=== PATIENT | female | born 1960 | race Caucasian/White ===

== ENCOUNTER 2020-06-30 14:13 | Inpatient (IN) | payer OTHER ==
[~2020-06-30] VITALS: Ht 162.6 cm; Wt 59.0 kg
[2020-06-30] VITALS (7 sets, daily range): BP systolic 83–153; BP diastolic 61–104
--- NOTE | 2020-06-30 15:33 | Emergency Room Report ---
History of Present Illness General Chief Complaint: Altered Level of Consciousness Source: Medical Record, EMS Present Illness HPI Patient is a 59-year-old female brought in by EMS from her extended care facility for altered mental status. Unclear what patient's mental baseline is b ut the assisted staff states that she is more altered than usual. Unable to obtain further history at this time. 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 Patient History Reviewed Nursing Documentation: PMH: Agreed; PSxH: Agreed Review of Systems All Other Systems: limited - Nonverbal Physical Exam Vital Signs Date Time Temp Pulse Resp B/P (MAP) Pulse Ox O2 Delivery O2 Flow Rate FiO2 06/30/20 13:59 98.1 122 22 123/104 (110) 98 4.0 Sp02 EP Interpretation: abnormal General Appearance: no apparent distress, other - Chronically ill-appearing moving all extremities nonverbal Head: normocephalic, atraumatic ENT: moist mucus membranes Neck: full range of motion, supple, no meningismus Respiratory: rhonchi, other - Tachypneic Cardiovascular #1: tachycardia Gastrointestinal: normal bowel sounds, non tender, soft Musculoskeletal: other - Moving all extremities status post amputation of right foot 3 digits Neurologic: other - Unable to obtain proper neurologic exam Psychiatric: other - Nonverbal unable to assess Skin: no rash Lymphatic: no adenopathy Procedures Critical Care Time Critical Care Time Total critical care time: Approximately 35 minutes. Due to a high probability of clinically significant, life threatening deterioration, the patient required my highest level of preparedness to intervene emergently and I personally spent this critical care time directly and personally managing the patient. This critical care time included obtaining a history; examining the patient; pulse oximetry; ordering and review of studies; arranging urgent treatment with development of a management plan; evaluation of patient's response to treatment; frequent reassessment; and, discussions with other providers.This critical care time was performed to assess and manage the high probability of imminent, life- threatening deterioration that could result in multi-organ failure. It was exclusive of separately billable procedures and treating other patients and teaching time. Please see MDM section and the rest of the note for further information on patient assessment and treatment. Medical Decision Making Diagnostic Impression: Primary Impression: COVID-19 Additional Impressions: AMS (altered mental status) Pneumonia UTI (urinary tract infection) Respiratory failure Hyperglycemia Acute renal failure ER Course Patient presents for altered mental status. Unknown patient is extremities. CT brain demonstrates no acute intracranial pathology. Patient is COVID-19 positive and has bilateral pulmonary infiltrates on her chest x-ray. Patient started on vancomycin and cefepime as she is coming from an extended care facility. Patient also given IV Decadron as well as breathing treatments. Patient became increasingly tachypneic while in the emergency room and has been placed on BiPAP. Patient also has UTI which will be covered by the previous antibiotics. Patient is hyperglycemic with glucose greater than 800 normal anion gap. Patient has been given insulin. Patient given IV fluids. Patient presents with acute renal insufficiency creatinine of 4. Patient has no known history of dialysis. Patient is hyponatremic and hyperkalemic. Laboratory Tests Test 06/30/20 15:50 06/30/20 16:50 06/30/20 17:34 White Blood Count 14.0 K/UL (4.8-10.8) H Red Blood Count 4.40 M/UL (4.20-5.40) Hemoglobin 13.5 G/DL (12.0-16.0) Hematocrit 42.2 % (37.0-47.0) Mean Corpuscular Volume 96 FL (80-99) Mean Corpuscular Hemoglobin 30.7 PG (27.0-31.0) Mean Corpuscular Hemoglobin Concent 32.0 G/DL (32.0-36.0) Red Cell Distribution Width 15.1 % (11.6-14.8) H Platelet Count 172 K/UL (150-450) Mean Platelet Volume 7.7 FL (6.5-10.1) Neutrophils (%) (Auto) 86.9 % (45.0-75.0) H Lymphocytes (%) (Auto) 10.4 % (20.0-45.0) L Monocytes (%) (Auto) 2.4 % (1.0-10.0) Eosinophils (%) (Auto) 0.0 % (0.0-3.0) Basophils (%) (Auto) 0.3 % (0.0-2.0) Prothrombin Time 11.5 SEC (9.30-11.50) Prothrombin Time INR 1.0 (0.9-1.1) Activated Partial Thromboplast Time 26 SEC (23-33) D-Dimer 3.03 mg/L FEU (0.00-0.49) H Sodium Level 154 MMOL/L (136-145) H Potassium Level 5.9 MMOL/L (3.5-5.1) H Chloride Level 117 MMOL/L (98-107) H Carbon Dioxide Level 22 MMOL/L (21-32) Anion Gap 15 mmol/L (5-15) Blood Urea Nitrogen 121 mg/dL (7-18) H Creatinine 4.2 MG/DL (0.55-1.30) H Estimated Glomerular Filtration Rate 10.8 mL/min (>60) Glucose Level 867 MG/DL (74-106) *H Lactic Acid Level 5.60 mmol/L (0.4-2.0) H Calcium Level 8.8 MG/DL (8.5-10.1) Magnesium Level 3.6 MG/DL (1.8-2.4) H Ferritin 513 NG/ML (8-388) H Total Bilirubin 0.3 MG/DL (0.2-1.0) Aspartate Amino Transferase (AST) 13 U/L (15-37) L Alanine Aminotransferase (ALT) < 6 U/L (12-78) L Alkaline Phosphatase 100 U/L (46-116) Lactate Dehydrogenase 431 U/L (81-234) H Troponin I 0.014 ng/mL (0.000-0.056) C-Reactive Protein, Quantitative 26.7 mg/dL (0.00-0.90) H Pro-B-Type Natriuretic Peptide 4032 pg/mL (0-125) H Total Protein 9.9 G/DL (6.4-8.2) H Albumin 2.5 G/DL (3.4-5.0) L Globulin 7.4 g/dL Albumin/Globulin Ratio 0.3 (1.0-2.7) L Urine Color Yellow Urine Appearance Cloudy Urine pH 5 (4.5-8.0) Urine Specific [place] 1.020 (1.005-1.035) Urine Protein 3+ (NEGATIVE) H Urine Glucose (UA) 2+ (NEGATIVE) H Urine Ketones 1+ (NEGATIVE) H Urine Blood 5+ (NEGATIVE) H Urine Nitrite Negative (NEGATIVE) Urine Bilirubin 1+ (NEGATIVE) H Urine Ictotest Negative (NEGATIVE) Urine Urobilinogen 1 MG/DL (0.0-1.0) H Urine Leukocyte Esterase 3+ (NEGATIVE) H Urine RBC 20-30 /HPF (0 - 2) H Urine WBC Tntc /HPF (0 - 2) H Urine Squamous Epithelial Cells Many /LPF (NONE/OCC) H Urine Bacteria Many /HPF (NONE) H Arterial Blood pH 7.268 (7.350-7.450) Arterial Blood Partial Pressure CO2 42.8 mmHg (35.0-45.0) Arterial Blood Partial Pressure O2 78.6 mmHg (75.0-100.0) Arterial Blood HCO3 19.1 mmol/L (22.0-26.0) L Arterial Blood Oxygen Saturation 92.6 % (95-100) L Arterial Blood Base Excess -7.5 (-2-2) L Pavan Test Positive Microbiology Date/Time Source Procedure Growth Status 06/30/20 14:36 Nasopharynx SARS-CoV-2 RdRp Gene Assay - Final Complete Rhythm Strip Diag. Results Rhythm Strip Time: 15:35 EP Interpretation: yes - Shayla Lema MD Rate: 130 bpm Rhythm: no PVC's, no ectopy, other - sinus tachycardia Chest X-Ray Diagnostic Results Chest X-Ray Diagnostic Results : Chest X-Ray Ordered: Yes # of Views/Limited/Complete: 1 View EP Interpretation: Yes Interpretation: no effusion, no pneumothorax, other - Bilateral pulmonary infiltrates Impression: Other - Pneumonia Electronically Signed by: Shayla Lema MD Last Vital Signs Date Time Temp Pulse Resp B/P (MAP) Pulse Ox O2 Delivery O2 Flow Rate FiO2 06/30/20 13:59 98.1 122 22 123/104 (110) 98 4.0 Disposition: ADMITTED INPATIENT - SDU Condition: Critical Physician Consult: Dr. Poppy MD at 1810 Additional Instructions: Please note that this report is being documented using Betyah technology. This can lead to erroneous entry secondary to incorrect interpretation by the dictating instrument. Sepsis Event Note Evaluation Current Stage of Sepsis: Severe Sepsis Possible Source: Pulmonary Focused Exam Allergies: Coded Allergies: No Known Allergies (Unverified , 06/30/20) Date Exam Occurred: Jun 30, 2020 Time Exam Occurred: 18:13 Laboratory Studies Laboratory Tests Test 06/30/20 15:50 06/30/20 16:50 06/30/20 17:34 White Blood Count 14.0 K/UL (4.8-10.8) H Red Blood Count 4.40 M/UL (4.20-5.40) Hemoglobin 13.5 G/DL (12.0-16.0) Hematocrit 42.2 % (37.0-47.0) Mean Corpuscular Volume 96 FL (80-99) Mean Corpuscular Hemoglobin 30.7 PG (27.0-31.0) Mean Corpuscular Hemoglobin Concent 32.0 G/DL (32.0-36.0) Red Cell Distribution Width 15.1 % (11.6-14.8) H Platelet Count 172 K/UL (150-450) Mean Platelet Volume 7.7 FL (6.5-10.1) Neutrophils (%) (Auto) 86.9 % (45.0-75.0) H Lymphocytes (%) (Auto) 10.4 % (20.0-45.0) L Monocytes (%) (Auto) 2.4 % (1.0-10.0) Eosinophils (%) (Auto) 0.0 % (0.0-3.0) Basophils (%) (Auto) 0.3 % (0.0-2.0) Prothrombin Time 11.5 SEC (9.30-11.50) Prothromb Time International Ratio 1.0 (0.9-1.1) Activated Partial Thromboplast Time 26 SEC (23-33) D-Dimer 3.03 mg/L FEU (0.00-0.49) H Sodium Level 154 MMOL/L (136-145) H Potassium Level 5.9 MMOL/L (3.5-5.1) H Chloride Level 117 MMOL/L (98-107) H Carbon Dioxide Level 22 MMOL/L (21-32) Anion Gap 15 mmol/L (5-15) Blood Urea Nitrogen 121 mg/dL (7-18) H Creatinine 4.2 MG/DL (0.55-1.30) H Estimat Glomerular Filtration Rate 10.8 mL/min (>60) Glucose Level 867 MG/DL (74-106) *H Lactic Acid Level 5.60 mmol/L (0.4-2.0) H Calcium Level 8.8 MG/DL (8.5-10.1) Magnesium Level 3.6 MG/DL (1.8-2.4) H Ferritin 513 NG/ML (8-388) H Total Bilirubin 0.3 MG/DL (0.2-1.0) Aspartate Amino Transf (AST/SGOT) 13 U/L (15-37) L Alanine Aminotransferase (ALT/SGPT) < 6 U/L (12-78) L Alkaline Phosphatase 100 U/L (46-116) Lactate Dehydrogenase 431 U/L (81-234) H Troponin I 0.014 ng/mL (0.000-0.056) C-Reactive Protein, Quantitative 26.7 mg/dL (0.00-0.90) H Pro-B-Type Natriuretic Peptide 4032 pg/mL (0-125) H Total Protein 9.9 G/DL (6.4-8.2) H Albumin 2.5 G/DL (3.4-5.0) L Globulin 7.4 g/dL Albumin/Globulin Ratio 0.3 (1.0-2.7) L Urine Color Yellow Urine Appearance Cloudy Urine pH 5 (4.5-8.0) Urine Specific [place] 1.020 (1.005-1.035) Urine Protein 3+ (NEGATIVE) H Urine Glucose (UA) 2+ (NEGATIVE) H Urine Ketones 1+ (NEGATIVE) H Urine Blood 5+ (NEGATIVE) H Urine Nitrite Negative (NEGATIVE) Urine Bilirubin 1+ (NEGATIVE) H Urine Ictotest Negative (NEGATIVE) Urine Urobilinogen 1 MG/DL (0.0-1.0) H Urine Leukocyte Esterase 3+ (NEGATIVE) H Urine RBC 20-30 /HPF (0 - 2) H Urine WBC Tntc /HPF (0 - 2) H Urine Squamous Epithelial Cells Many /LPF (NONE/OCC) H Urine Bacteria Many /HPF (NONE) H Arterial Blood pH 7.268 (7.350-7.450) Arterial Blood Partial Pressure CO2 42.8 mmHg (35.0-45.0) Arterial Blood Partial Pressure O2 78.6 mmHg (75.0-100.0) Arterial Blood HCO3 19.1 mmol/L (22.0-26.0) L Arterial Blood Oxygen Saturation 92.6 % (95-100) L Arterial Blood Base Excess -7.5 (-2-2) L Pavan Test Positive Vital Signs Last 24 Hour Vital Signs Date Time Temp Pulse Resp B/P (MAP) Pulse Ox O2 Delivery O2 Flow Rate FiO2 06/30/20 17:30 98.4 122 40 83/61 90 Non-Rebreather 15.0 06/30/20 15:40 98.2 112 33 109/74 98 Non-Rebreather 15.0 06/30/20 15:32 98.1 22 123/104 98 Non-Rebreather 15.0 06/30/20 15:32 122 22 Non-Rebreather 15.0 06/30/20 13:59 98.1 122 22 123/104 (110) 98 4.0 Respiratory Exam: Rhonchi Cardiovascular Exam: RRR Capillary Refill: Less Than 2 Seconds Peripheral Pulse: Shayla Rizo M.D. Jun 30, 2020 15:33
[2020-06-30] MEDS ORDERED: Cefepime HCl 2 GM in D5W 55 ML IVPB ONE (15:45)
[2020-06-30] MEDS ORDERED: Vancomycin 1 GM in NS 275 ML IVPB ONE (15:45)
[2020-06-30] MEDS ORDERED: Albuterol/Ipratropium 3ml neb HHN ONE ×2 (15:45→18:15)
[2020-06-30] MEDS ORDERED: dexAMETHasone 10mg/ml Inj IV ONE (15:45)
[2020-06-30] MEDS ORDERED: NESINA25 MG PO (16:36)
[2020-06-30] MEDS ORDERED: BENZTROPINE MESY1 MG ORAL (16:36)
[2020-06-30] MEDS ORDERED: COLACE100 MG ORAL (16:36)
[2020-06-30] MEDS ORDERED: DEPAKOTE ER500 MG ORAL (16:38)
[2020-06-30] MEDS ORDERED: Midazolam 2mg/2ml Inj IVP ONE (16:45)
[2020-06-30] MEDS ORDERED: GLIPIZIDE5 MG ORAL (16:47)
[2020-06-30] MEDS ORDERED: ACIDOPHILUS LACT1 GM MC (16:47)
[2020-06-30] MEDS ORDERED: MILK OF MA400 MG/51 ORAL (16:47)
[2020-06-30] MEDS ORDERED: DULCOLAX10 MG RC (16:47)
[2020-06-30] MEDS ORDERED: FLEET ENEMA133 ML RECTAL (16:47)
[2020-06-30] MEDS ORDERED: NOVOLIN R100 UNIT/1 SUBQ (16:47)
[2020-06-30] MEDS ORDERED: METFORMIN HCL500 M1 ORAL (16:47)
[2020-06-30] MEDS ORDERED: PROTONIX20 MG ORAL (16:48)
[2020-06-30] MEDS ORDERED: MIRALAX17 G2 ORAL (16:48)
[2020-06-30] MEDS ORDERED: SENNA LAXATIVE8.6 MG PO (16:54)
[2020-06-30] MEDS ORDERED: ACETAMINOPHEN325 M1 ORAL (16:54)
--- NOTE | 2020-06-30 17:06 | Diagnostic Imaging Report ---
Indication: Shortness of breath Technique: One view of the chest Comparison: none Findings: Infiltrate is seen in the right infrahilar region. There are also bilateral streaky and peribronchial vascular infiltrates. There is a right jugular central venous catheter. The heart size is normal. The pleural spaces are clear. Impression: Bilateral infiltrates, likely representing multifocal pneumonia
[2020-06-30 17:30] LABS: APPEARANCE,URINE CLOUDY; BILIRUBIN, URINE 1+ (NEGATIVE); GLUCOSE, URINE (UA) 2+ (NEGATIVE); KETONES,URINE 1+ (NEGATIVE); LEUKOCYTE ESTERASE ,URINE 3+ (NEGATIVE); NITRITE,URINE NEGATIVE (NEGATIVE); PH,URINE 5 (4.5-8.0); PROTEIN,URINE 3+ (NEGATIVE); UROBILINOGEN,URINE 1 MG/DL (0.0-1.0)
[2020-06-30 17:36] LABS: COLOR,URINE YELLOW
--- NOTE | 2020-06-30 17:48 | Diagnostic Imaging Report ---
History: AMS Exam: CT HEAD Without Contrast Technique more: CTDI is 53.4 mGy and DLP is 1072.2 mGy-cm. Technique more: One or more of the following dose reduction techniques were used: automated exposure control, adjustment of the mA and/or kV according to patient size, use of iterative reconstruction technique. Comparison: None available FINDINGS: No intracranial hemorrhage or CT evidence of large vascular territory acute infarct. Right frontal approach intraventricular shunt catheter with tip at the septum pellucidum. The lateral and third ventricles are mildly large in size although no prior studies for comparison at this time. No midline shift. Chronic and involutional changes. The mastoids are clear. IMPRESSION: No intracranial hemorrhage or CT evidence of large vascular territory acute infarct. Right frontal approach intraventricular shunt catheter with tip at the septum pellucidum. The lateral and third ventricles are mildly large in size although no prior studies for comparison at this time. No midline shift. Chronic and involutional changes.
[2020-06-30 17:49] LABS: ANION GAP 15 mmol/L (5-15); BLOOD UREA NITROGEN 121 mg/dL (7-18); CALCIUM 8.8 MG/DL (8.5-10.1); CARBON DIOXIDE 22 MMOL/L (21-32); CHLORIDE 117 MMOL/L (98-107); CREATININE 4.2 MG/DL (0.55-1.30); POTASSIUM 5.9 MMOL/L (3.5-5.1); SODIUM 154 MMOL/L (136-145)
[2020-06-30 17:59] LABS: HEMATOCRIT 42.2 % (37.0-47.0); HEMOGLOBIN 13.5 G/DL (12.0-16.0); MEAN CORPUSCULAR VOLUME 96 FL (80-99); PLATELET COUNT 172 K/UL (150-450); RED CELL DISTRIBUTION WIDTH 15.1 % (11.6-14.8)
[2020-06-30] MEDS ORDERED: Insulin Human Regular 100units/ml 3ml IV ONE (18:00)
[2020-06-30 18:01] LABS: ALANINE AMINOTRANSFERASE < 6 U/L (12-78); ALBUMIN 2.5 G/DL (3.4-5.0); ALBUMIN/GLOBULIN RATIO 0.3 (1.0-2.7); ALKALINE PHOSPHATASE 100 U/L (46-116); ASPARTATE AMINO TRANSFERASE 13 U/L (15-37); BASOPHILS % (AUTO) 0.3 % (0.0-2.0); BILIRUBIN,TOTAL 0.3 MG/DL (0.2-1.0); FERRITIN 513 NG/ML (8-388); LACTATE DEHYDROGENASE 431 U/L (81-234); LYMPHOCYTES % (AUTO) 10.4 % (20.0-45.0); MONOCYTES % (AUTO) 2.4 % (1.0-10.0); NEUTROPHILS % (AUTO) 86.9 % (45.0-75.0)
[2020-06-30] MEDS ORDERED: Heparin 25,000u/D5W 500ml 500 ML IV SCH (18:15)
[2020-06-30] MEDS ORDERED: Heparin 5000 units/ml inj IV ONE (18:15)
[2020-06-30] MEDS ORDERED: Insulin Human Regular 100units/ml 3ml IV SCH (18:15)
[2020-07-01] VITALS (11 sets, daily range): BP systolic 77–101; BP diastolic 45–72
[2020-07-01 00:48] LABS: INR 1.1 (0.9-1.1)
[2020-07-01 05:50] LABS: ALBUMIN/GLOBULIN RATIO 0.3 (1.0-2.7); BILIRUBIN,TOTAL 0.3 MG/DL (0.2-1.0); CALCIUM 7.5 MG/DL (8.5-10.1); CREATININE 4.5 MG/DL (0.55-1.30); PHOSPHORUS 3.1 MG/DL (2.5-4.9); POTASSIUM 5.3 MMOL/L (3.5-5.1)
--- NOTE | 2020-07-01 06:35 | Consultation ---
History of Present Illness General Chief Complaint: Altered Level of Consciousness Present Illness Allergies: Coded Allergies: No Known Allergies (Unverified , 06/30/20) Medication History Scheduled Alogliptin Benzoate (Nesina), 25 MG PO DAILY, (Reported) Benztropine Mesylate* (Benztropine Mesylate*), 1 MG ORAL BID, (Reported) Bisacodyl (Dulcolax), 10 MG RC PRN, (Reported) Divalproex Sodium* (Depakote Er*), 500 MG ORAL THREE TIMES A DAY, (Reported) Docusate Sodium* (Colace*), 100 MG ORAL DAILY, (Reported) Glipizide* (Glipizide*), 10 MG ORAL DAILY, (Reported) Insulin Regular, Human* (Novolin R*), 0 SUBQ .SLIDING SCALE, (Reported) Lactobacillus Acidophilus (Acidophilus Lactobacillus), 1 GM MC THREE TIMES A DAY, (Reported) Magnesium Hydroxide* (Milk Of Magnesia*), 30 ML ORAL DAILY, (Reported) Metformin Hcl* (Metformin Hcl*), 500 MG ORAL TWICE A DAY, (Reported) Na Phos,M-B/Na Phos,Di-Ba* (Fleet Enema*), 133 ML RECTAL DAILY, (Reported) Pantoprazole Sodium (Protonix), 20 MG ORAL DAILY, (Reported) Polyethylene Glycol 3350* (Miralax*), 17 GM ORAL DAILY, (Reported) Sennosides (Senna Laxative), 17.2 MG PO BEDTIME, (Reported) Scheduled PRN Acetaminophen* (Acetaminophen 325MG Tablet*), 650 MG ORAL Q4H PRN for pain/fever, (Reported) Patient History Healthcare decision maker Resuscitation status Advanced Directive on File Physical Exam Last 24 Hour Vital Signs Date Time Temp Pulse Resp B/P (MAP) Pulse Ox O2 Delivery O2 Flow Rate FiO2 07/01/20 05:00 98.3 132 46 99/64 99 Bi-pap 15.0 100 07/01/20 04:00 98.3 130 46 98/72 99 Bi-pap 15.0 100 07/01/20 03:00 98.3 128 45 101/61 99 Bi-pap 15.0 100 07/01/20 02:43 118 47 99 100 07/01/20 02:00 98.3 128 38 94/63 98 Bi-pap 15.0 100 07/01/20 01:00 98.3 124 38 96/67 98 Bi-pap 15.0 100 07/01/20 00:00 98.4 121 41 98/62 97 Bi-pap 15.0 100 06/30/20 23:00 98.4 123 46 101/68 96 Bi-pap 15.0 100 06/30/20 23:00 122 46 94 100 06/30/20 22:00 98.4 119 32 110/72 100 Bi-pap 15.0 100 06/30/20 20:30 98.4 115 34 108/78 100 Bi-pap 15.0 100 06/30/20 19:30 98.4 119 34 153/98 100 Bi-pap 15.0 100 06/30/20 19:29 92 57 95 100 06/30/20 19:08 124 57 97 Bi-Pap 100 115 50 95 06/30/20 18:05 92 24 96 100 06/30/20 17:30 98.4 122 40 83/61 90 Non-Rebreather 15.0 06/30/20 15:40 98.2 112 33 109/74 98 Non-Rebreather 15.0 06/30/20 15:32 98.1 22 123/104 98 Non-Rebreather 15.0 06/30/20 15:32 122 22 Non-Rebreather 15.0 06/30/20 13:59 98.1 122 22 123/104 (110) 98 4.0 l Intake and Output 06/30/20 07/01/20 19:00 07:00 Intake Total 330 ml Balance 330 ml Intake Oral 0 ml IV Total 330 ml Laboratory Tests Test 06/30/20 15:50 06/30/20 16:50 06/30/20 17:34 07/01/20 00:00 White Blood Count 14.0 K/UL (4.8-10.8) H Red Blood Count 4.40 M/UL (4.20-5.40) Hemoglobin 13.5 G/DL (12.0-16.0) Hematocrit 42.2 % (37.0-47.0) Mean Corpuscular Volume 96 FL (80-99) Mean Corpuscular Hemoglobin 30.7 PG (27.0-31.0) Mean Corpuscular Hemoglobin Concent 32.0 G/DL (32.0-36.0) Red Cell Distribution Width 15.1 % (11.6-14.8) H Platelet Count 172 K/UL (150-450) Mean Platelet Volume 7.7 FL (6.5-10.1) Neutrophils (%) (Auto) 86.9 % (45.0-75.0) H Lymphocytes (%) (Auto) 10.4 % (20.0-45.0) L Monocytes (%) (Auto) 2.4 % (1.0-10.0) Eosinophils (%) (Auto) 0.0 % (0.0-3.0) Basophils (%) (Auto) 0.3 % (0.0-2.0) Prothrombin Time 11.5 SEC (9.30-11.50) 12.2 SEC (9.30-11.50) H Prothromb Time International Ratio 1.0 (0.9-1.1) 1.1 (0.9-1.1) Activated Partial Thromboplast Time 26 SEC (23-33) 60 SEC (23-33) H D-Dimer 3.03 mg/L FEU (0.00-0.49) H Sodium Level 154 MMOL/L (136-145) H Potassium Level 5.9 MMOL/L (3.5-5.1) H Chloride Level 117 MMOL/L (98-107) H Carbon Dioxide Level 22 MMOL/L (21-32) Anion Gap 15 mmol/L (5-15) Blood Urea Nitrogen 121 mg/dL (7-18) H Creatinine 4.2 MG/DL (0.55-1.30) H Estimat Glomerular Filtration Rate 10.8 mL/min (>60) Glucose Level 867 MG/DL (74-106) *H Lactic Acid Level 5.60 mmol/L (0.4-2.0) H Calcium Level 8.8 MG/DL (8.5-10.1) Magnesium Level 3.6 MG/DL (1.8-2.4) H Ferritin 513 NG/ML (8-388) H Total Bilirubin 0.3 MG/DL (0.2-1.0) Aspartate Amino Transf (AST/SGOT) 13 U/L (15-37) L Alanine Aminotransferase (ALT/SGPT) < 6 U/L (12-78) L Alkaline Phosphatase 100 U/L (46-116) Lactate Dehydrogenase 431 U/L (81-234) H Troponin I 0.014 ng/mL (0.000-0.056) C-Reactive Protein, Quantitative 26.7 mg/dL (0.00-0.90) H Pro-B-Type Natriuretic Peptide 4032 pg/mL (0-125) H Total Protein 9.9 G/DL (6.4-8.2) H Albumin 2.5 G/DL (3.4-5.0) L Globulin 7.4 g/dL Albumin/Globulin Ratio 0.3 (1.0-2.7) L Urine Color Yellow Urine Appearance Cloudy Urine pH 5 (4.5-8.0) Urine Specific [place] 1.020 (1.005-1.035) Urine Protein 3+ (NEGATIVE) H Urine Glucose (UA) 2+ (NEGATIVE) H Urine Ketones 1+ (NEGATIVE) H Urine Blood 5+ (NEGATIVE) H Urine Nitrite Negative (NEGATIVE) Urine Bilirubin 1+ (NEGATIVE) H Urine Ictotest Negative (NEGATIVE) Urine Urobilinogen 1 MG/DL (0.0-1.0) H Urine Leukocyte Esterase 3+ (NEGATIVE) H Urine RBC 20-30 /HPF (0 - 2) H Urine WBC Tntc /HPF (0 - 2) H Urine Squamous Epithelial Cells Many /LPF (NONE/OCC) H Urine Bacteria Many /HPF (NONE) H Urine Random Sodium 124 mmol/L (20-110) H Arterial Blood pH 7.268 (7.350-7.450) Arterial Blood Partial Pressure CO2 42.8 mmHg (35.0-45.0) Arterial Blood Partial Pressure O2 78.6 mmHg (75.0-100.0) Arterial Blood HCO3 19.1 mmol/L (22.0-26.0) L Arterial Blood Oxygen Saturation 92.6 % (95-100) L Arterial Blood Base Excess -7.5 (-2-2) L Pavan Test Positive Test 07/01/20 04:45 White Blood Count Pending Red Blood Count Pending Hemoglobin Pending Hematocrit Pending Mean Corpuscular Volume Pending Mean Corpuscular Hemoglobin Pending Mean Corpuscular Hemoglobin Concent Pending Red Cell Distribution Width Pending Platelet Count Pending Mean Platelet Volume Pending Neutrophils (%) (Auto) Pending Lymphocytes (%) (Auto) Pending Monocytes (%) (Auto) Pending Eosinophils (%) (Auto) Pending Basophils (%) (Auto) Pending Sodium Level 159 MMOL/L (136-145) H Potassium Level 5.3 MMOL/L (3.5-5.1) H Chloride Level 128 MMOL/L (98-107) H Carbon Dioxide Level 18 MMOL/L (21-32) L Anion Gap 13 mmol/L (5-15) Blood Urea Nitrogen 126 mg/dL (7-18) H Creatinine 4.5 MG/DL (0.55-1.30) H Estimat Glomerular Filtration Rate 9.9 mL/min (>60) Glucose Level 398 MG/DL (74-106) #H Hemoglobin A1c Pending Lactic Acid Level 3.90 mmol/L (0.4-2.0) H Uric Acid 13.4 MG/DL (2.6-7.2) H Calcium Level 7.5 MG/DL (8.5-10.1) L Phosphorus Level 3.1 MG/DL (2.5-4.9) Magnesium Level 2.6 MG/DL (1.8-2.4) H Total Bilirubin 0.3 MG/DL (0.2-1.0) Aspartate Amino Transf (AST/SGOT) 20 U/L (15-37) Alanine Aminotransferase (ALT/SGPT) 7 U/L (12-78) L Alkaline Phosphatase 64 U/L (46-116) C-Reactive Protein, Quantitative Pending Pro-B-Type Natriuretic Peptide 4317 pg/mL (0-125) H Total Protein 7.8 G/DL (6.4-8.2) Albumin 2.0 G/DL (3.4-5.0) L Globulin 5.8 g/dL Albumin/Globulin Ratio 0.3 (1.0-2.7) L Microbiology Date/Time Source Procedure Growth Status 06/30/20 15:50 Nasal Nares - Final Complete 06/30/20 15:50 Nasal Nares - Final Complete 06/30/20 14:36 Nasopharynx SARS-CoV-2 RdRp Gene Assay - Final Complete Height (Feet): 5 Height (Inches): 4.00 Weight (Pounds): 130 Medications Current Medications Medications (Trade) Dose Ordered Sig/Alexander Route PRN Reason Start Time Stop Time Status Last Admin Dose Admin Acetaminophen (Tylenol) 650 mg Q4H PRN ORAL For Pain 06/30/20 18:45 07/30/20 18:44 Acetaminophen (Tylenol) 650 mg Q4H PRN ORAL Temp >100.5 06/30/20 20:45 07/30/20 20:44 Bisacodyl (Dulcolax) 10 mg DAILYPRN PRN RECTAL Constipation 06/30/20 18:45 09/28/20 18:44 Chlorhexidine Gluconate (Carolyn-Hex 2%) 1 applic DAILY TOPIC 07/01/20 09:00 09/29/20 08:59 Dextrose (Dextrose 50%) 25 ml Q30M PRN IV Hypoglycemia 07/01/20 06:30 09/29/20 06:29 Dextrose (Dextrose 50%) 50 ml Q30M PRN IV Hypoglycemia 07/01/20 06:30 09/29/20 06:29 Docusate Sodium (Colace) 100 mg DAILY ORAL 07/01/20 09:00 07/31/20 08:59 Heparin Sodium/ Dextrose 500 ml @ 14.152 mls/ hr ADJUST PER PROTOCOL IV 06/30/20 18:15 07/30/20 18:14 06/30/20 18:16 Insulin Aspart (NovoLOG) EVERY 4 HOURS SUBQ 07/01/20 09:00 09/29/20 08:59 Insulin Detemir (Levemir) 10 units BID SUBQ 07/01/20 09:00 09/29/20 08:59 Sodium Chloride 1,000 ml @ 75 mls/hr [id number] IV 06/30/20 20:30 07/30/20 20:29 06/30/20 20:33 Assessment/Plan Assessment/Plan: Hematology Consultation REQ MD: Vick Mead DOS: 07/01/20 RFC: Elevated ddimer ID 59-year-old female brought in by EMS from her extended care facility for altered mental status. Unclear what patient's mental baseline is but the correction staff states that she is more altered than usual. Unable to obtain further history at this time. Has been started on heparin gtt for high ddimer, hypoxia. Allergies: No Known Allergies (Unverified , 06/30/20) COVID-19 Screening Contact w/high risk pt: No Experienced COVID-19 symptoms?: No COVID-19 Testing performed OIL RIG ROUGHNECK: No Patient History Reviewed Nursing Documentation: PMH: Agreed; PSxH: Agreed Review of Systems All Other Systems: limited - Nonverbal PE Vitals: noted Gen: Chronically ill-appearing moving all extremities nonverbal Heent: full range of motion, supple, no meningismus Resp: rhonchi, other - Tachypneic Cardiovascular: tachycardia Gastrointestinal: normal bowel sounds, non tender, soft Musculoskeletal: other - Moving all extremities status post amputation of right foot 3 digits Neurologic: other - Unable to obtain proper neurologic exam Psychiatric: other - Nonverbal unable to assess Skin: no rash Lymphatic: no adenopathy Labs: reviewed Imaging: noted Assessmet and Recs # Elevated ddimer -- may be due to hypercoag disorder, at this time, presents with covid 19 --> id and pulm consulted, isolation precautions --> will order duplex legs as well as v/q if able to tolerate --> continue on heparin gtt, until results above neg # Leukocytosis is due to covid 19 --> trend wbc 14 --> p smear has been reviewed, no blasts --> Cxr shows b/l pulm infiltrates # COVID-19 -> steriods, abx --> iso precautions # AMS (altered mental status) --> eval per neuro # Pneumonia # UTI # Respiratory failure # Hyperglycemia # Acute renal failure # Hyperkalemia Appreciate consultation and dw Chance Ordaz MD Jul 01, 2020 06:34
[2020-07-01 06:42] LABS: HEMATOCRIT 34.6 % (37.0-47.0); HEMOGLOBIN 11.5 G/DL (12.0-16.0); MEAN CORPUSCULAR VOLUME 92 FL (80-99); PLATELET COUNT 121 K/UL (150-450); RED BLOOD COUNT 3.76 M/UL (4.20-5.40); RED CELL DISTRIBUTION WIDTH 15.1 % (11.6-14.8); WHITE BLOOD COUNT 11.1 K/UL (4.8-10.8)
[2020-07-01 07:47] LABS: INR 1.2 (0.9-1.1)
--- NOTE | 2020-07-01 08:00 | Consultation ---
DATE OF CONSULTATION: 07/01/2020 ENDOCRINOLOGY CONSULTATION CONSULTING PHYSICIAN: Sincere Galvan MD. REFERRING PHYSICIAN: Vick Love MD. REASON FOR CONSULTATION: Diabetes management. HISTORY OF PRESENT ILLNESS: This is important to note that history was obtained from review of the chart and medical records. The patient is not able to provide any meaningful history. The patient presented to the hospital with altered mental status, elevated glucose, COVID positive, glucose is over 400. There is no evidence of DKA. Lactic acid was positive. Endocrinology was consulted in order to assist in management of diabetes. PAST MEDICAL HISTORY: Diabetes, on oral agents glipizide, Nesina as well as metformin. PAST SURGICAL HISTORY: Unknown. MEDICATIONS: As per HPI. FAMILY HISTORY: Noncontributory. SOCIAL HISTORY: No smoking, alcohol, or drug use. LABORATORY VALUES: Sodium 159, potassium 5.3, chloride 128, bicarb 30, BUN 126, creatinine of 4.5, and glucose of 398. Lactic acid of 5.6. PHYSICAL EXAMINATION: VITAL SIGNS: Blood pressure is 99/64, heart rate of 133, temperature 98.3, respiratory rate 12. Exam was deferred due to COVID isolation. DIAGNOSES: 1. Acute kidney injury. 2. Lactic acidosis. 3. Diabetes, out of control. 4. COVID pneumonia. PLAN: 1. Levemir 10 units twice a day. 2. Start glucose monitoring every 4 hours. 3. NovoLog sliding scale high dose every 4 hours. 4. Hypoglycemia protocol is in order. 5. Further adjustment according to the blood glucose values. Thank you, Dr. Love, for the courtesy of this consultation. Sincere Galvan M.D. DR: TEDDY/RABIA JOB#: [id number] CC: CLAUDE
[2020-07-01] MEDS ORDERED: Levemir Flexpen SUBQ SCH (09:00)
[2020-07-01] MEDS ORDERED: Docusate 100mg cap ORAL SCH ×2 (09:00→13:00)
[2020-07-01] MEDS ORDERED: NovoLOG Insulin Flexpen SUBQ SCH (09:00)
[2020-07-01] MEDS ORDERED: Dyna-Hex 2% Top Sol 2oz TOPIC SCH (09:00)
--- NOTE | 2020-07-01 10:27 | Consultation ---
Consult Note Consult Note I am asked to evaluate the patient at the request of Dr. Mead for renal failure Patient seen in [facility] Patient agitated, on BiPAP Discussed with WEB EDITOR note: Chief Complaint: Altered Level of Consciousness Patient is a 59-year-old female brought in by EMS from her extended care facility for altered mental status. Unclear what patient's mental baseline is but the long term staff states that she is more altered than usual. Unable to obtain further history at this time. Allergies: No Known Allergies (Unverified , 06/30/20) COVID-19 Screening Contact w/high risk pt: No Experienced COVID-19 symptoms?: No COVID-19 Testing performed MANAGER BIOLOGICS: No Vital Signs Date Time Temp Pulse Resp B/P (MAP) Pulse Ox O2 Delivery O2 Flow Rate FiO2 06/30/20 13:59 98.1 122 22 123/104 (110) 98 4.0 Assessment/Plan Acute renal failure Most likely underlying chronic kidney disease Presents with acute respiratory failure and hypoxia currently on BiPAP Toxic metabolic encephalopathy UTI, COVID-19 Hyperglycemia Patient currently hypotensive ABG results: Hypoxic , acidosis Suggestions: Transfer to ICU Garcia Hydrate, albumin bolus, pressors if needed 2D echo Kidney ultrasound Pressors Antibiotics Per consultants Basim Coe MD Jul 01, 2020 10:27
--- NOTE | 2020-07-01 11:46 | Diagnostic Imaging Report ---
Indication: Acute renal failure Technique: Grayscale and duplex images of the kidneys, retroperitoneum, and bladder were obtained. Comparison: none Findings: Right kidney measures 10 cm in length. Left kidney cannot be visualized, due to patient body habitus. The right kidney demonstrates normal echogenicity and no hydronephrosis. A small cyst is seen in the lower pole. Normal inferior vena cava. Bladder is empty, contains a Garcia catheter. Impression: Nonvisualized left kidney, due to body habitus Unremarkable right kidney. No hydronephrosis. Incidental finding of lower pole cyst Empty bladder with a Garcia catheter.
[2020-07-01] MEDS ORDERED: Heparin 25,000u/D5W 500ml 500 ML IV SCH (11:54)
--- NOTE | 2020-07-01 12:39 | Cardiac Electrophysiology PN ---
Subjective Subjective [id number] Objective Last 24 Hour Vital Signs Date Time Temp Pulse Resp B/P (MAP) Pulse Ox O2 Delivery O2 Flow Rate FiO2 07/01/20 10:41 Bi-pap 07/01/20 09:51 74 24 98 Bi-Pap 100 07/01/20 08:55 98.3 112 36 102/62 100 Bi-pap 15.0 100 07/01/20 08:05 81 44 96 100 07/01/20 07:29 98.3 145 44 101/64 88 Bi-pap 15.0 100 07/01/20 07:07 98.3 132 48 101/64 96 Bi-pap 15.0 100 07/01/20 06:00 98.3 132 46 97/62 95 Bi-pap 15.0 100 07/01/20 05:00 98.3 132 46 99/64 99 Bi-pap 15.0 100 07/01/20 04:00 98.3 130 46 98/72 99 Bi-pap 15.0 100 07/01/20 03:00 98.3 128 45 101/61 99 Bi-pap 15.0 100 07/01/20 02:43 118 47 99 100 07/01/20 02:00 98.3 128 38 94/63 98 Bi-pap 15.0 100 07/01/20 01:00 98.3 124 38 96/67 98 Bi-pap 15.0 100 07/01/20 00:00 98.4 121 41 98/62 97 Bi-pap 15.0 100 06/30/20 23:00 98.4 123 46 101/68 96 Bi-pap 15.0 100 06/30/20 23:00 122 46 94 100 06/30/20 22:00 98.4 119 32 110/72 100 Bi-pap 15.0 100 06/30/20 20:30 98.4 115 34 108/78 100 Bi-pap 15.0 100 06/30/20 19:30 98.4 119 34 153/98 100 Bi-pap 15.0 100 06/30/20 19:29 92 57 95 100 06/30/20 19:08 124 57 97 Bi-Pap 100 115 50 95 06/30/20 18:05 92 24 96 100 06/30/20 17:30 98.4 122 40 83/61 90 Non-Rebreather 15.0 12/23/20 15:40 98.2 112 33 109/74 98 Non-Rebreather 15.0 06/30/20 15:32 98.1 22 123/104 98 Non-Rebreather 15.0 06/30/20 15:32 122 22 Non-Rebreather 15.0 06/30/20 13:59 98.1 122 22 123/104 (110) 98 4.0 Intake and Output 06/30/20 07/01/20 19:00 07:00 Intake Total 330 ml Balance 330 ml Intake Oral 0 ml IV Total 330 ml Laboratory Tests Test 06/30/20 15:50 06/30/20 16:50 06/30/20 17:34 07/01/20 00:00 White Blood Count 14.0 K/UL (4.8-10.8) H Red Blood Count 4.40 M/UL (4.20-5.40) Hemoglobin 13.5 G/DL (12.0-16.0) Hematocrit 42.2 % (37.0-47.0) Mean Corpuscular Volume 96 FL (80-99) Mean Corpuscular Hemoglobin 30.7 PG (27.0-31.0) Mean Corpuscular Hemoglobin Concent 32.0 G/DL (32.0-36.0) Red Cell Distribution Width 15.1 % (11.6-14.8) H Platelet Count 172 K/UL (150-450) Mean Platelet Volume 7.7 FL (6.5-10.1) Neutrophils (%) (Auto) 86.9 % (45.0-75.0) H Lymphocytes (%) (Auto) 10.4 % (20.0-45.0) L Monocytes (%) (Auto) 2.4 % (1.0-10.0) Eosinophils (%) (Auto) 0.0 % (0.0-3.0) Basophils (%) (Auto) 0.3 % (0.0-2.0) Prothrombin Time 11.5 SEC (9.30-11.50) 12.2 SEC (9.30-11.50) H Prothromb Time International Ratio 1.0 (0.9-1.1) 1.1 (0.9-1.1) Activated Partial Thromboplast Time 26 SEC (23-33) 60 SEC (23-33) H D-Dimer 3.03 mg/L FEU (0.00-0.49) H Sodium Level 154 MMOL/L (136-145) H Potassium Level 5.9 MMOL/L (3.5-5.1) H Chloride Level 117 MMOL/L (98-107) H Carbon Dioxide Level 22 MMOL/L (21-32) Anion Gap 15 mmol/L (5-15) Blood Urea Nitrogen 121 mg/dL (7-18) H Creatinine 4.2 MG/DL (0.55-1.30) H Estimat Glomerular Filtration Rate 10.8 mL/min (>60) Glucose Level 867 MG/DL (74-106) *H Lactic Acid Level 5.60 mmol/L (0.4-2.0) H Calcium Level 8.8 MG/DL (8.5-10.1) Magnesium Level 3.6 MG/DL (1.8-2.4) H Ferritin 513 NG/ML (8-388) H Total Bilirubin 0.3 MG/DL (0.2-1.0) Aspartate Amino Transf (AST/SGOT) 13 U/L (15-37) L Alanine Aminotransferase (ALT/SGPT) < 6 U/L (12-78) L Alkaline Phosphatase 100 U/L (46-116) Lactate Dehydrogenase 431 U/L (81-234) H Troponin I 0.014 ng/mL (0.000-0.056) C-Reactive Protein, Quantitative 26.7 mg/dL (0.00-0.90) H Pro-B-Type Natriuretic Peptide 4032 pg/mL (0-125) H Total Protein 9.9 G/DL (6.4-8.2) H Albumin 2.5 G/DL (3.4-5.0) L Globulin 7.4 g/dL Albumin/Globulin Ratio 0.3 (1.0-2.7) L Urine Color Yellow Urine Appearance Cloudy Urine pH 5 (4.5-8.0) Urine Specific [place] 1.020 (1.005-1.035) Urine Protein 3+ (NEGATIVE) H Urine Glucose (UA) 2+ (NEGATIVE) H Urine Ketones 1+ (NEGATIVE) H Urine Blood 5+ (NEGATIVE) H Urine Nitrite Negative (NEGATIVE) Urine Bilirubin 1+ (NEGATIVE) H Urine Ictotest Negative (NEGATIVE) Urine Urobilinogen 1 MG/DL (0.0-1.0) H Urine Leukocyte Esterase 3+ (NEGATIVE) H Urine RBC 20-30 /HPF (0 - 2) H Urine WBC Tntc /HPF (0 - 2) H Urine Squamous Epithelial Cells Many /LPF (NONE/OCC) H Urine Bacteria Many /HPF (NONE) H Urine Random Sodium 124 mmol/L (20-110) H Arterial Blood pH 7.268 (7.350-7.450) Arterial Blood Partial Pressure CO2 42.8 mmHg (35.0-45.0) Arterial Blood Partial Pressure O2 78.6 mmHg (75.0-100.0) Arterial Blood HCO3 19.1 mmol/L (22.0-26.0) L Arterial Blood Oxygen Saturation 92.6 % (95-100) L Arterial Blood Base Excess -7.5 (-2-2) L Pavan Test Positive Test 07/01/20 04:45 07/01/20 07:00 07/01/20 09:34 White Blood Count 11.1 K/UL (4.8-10.8) H Red Blood Count 3.76 M/UL (4.20-5.40) L Hemoglobin 11.5 G/DL (12.0-16.0) L Hematocrit 34.6 % (37.0-47.0) L Mean Corpuscular Volume 92 FL (80-99) Mean Corpuscular Hemoglobin 30.5 PG (27.0-31.0) Mean Corpuscular Hemoglobin Concent 33.2 G/DL (32.0-36.0) Red Cell Distribution Width 15.1 % (11.6-14.8) H Platelet Count 121 K/UL (150-450) L Mean Platelet Volume 9.5 FL (6.5-10.1) Neutrophils (%) (Auto) % (45.0-75.0) Lymphocytes (%) (Auto) % (20.0-45.0) Monocytes (%) (Auto) % (1.0-10.0) Eosinophils (%) (Auto) % (0.0-3.0) Basophils (%) (Auto) % (0.0-2.0) Differential Total Cells Counted 100 Neutrophils % (Manual) 71 % (45-75) Lymphocytes % (Manual) 7 % (20-45) L Monocytes % (Manual) 2 % (1-10) Eosinophils % (Manual) 0 % (0-3) Basophils % (Manual) 0 % (0-2) Band Neutrophils 20 % (0-8) H Platelet Estimate Decreased L Platelet Morphology Normal Hypochromasia 1+ Anisocytosis 1+ Sodium Level 159 MMOL/L (136-145) H Potassium Level 5.3 MMOL/L (3.5-5.1) H Chloride Level 128 MMOL/L (98-107) H Carbon Dioxide Level 18 MMOL/L (21-32) L Anion Gap 13 mmol/L (5-15) Blood Urea Nitrogen 126 mg/dL (7-18) H Creatinine 4.5 MG/DL (0.55-1.30) H Estimat Glomerular Filtration Rate 9.9 mL/min (>60) Glucose Level 398 MG/DL (74-106) #H Hemoglobin A1c 9.8 % (4.3-6.0) H Lactic Acid Level 3.90 mmol/L (0.4-2.0) H Uric Acid 13.4 MG/DL (2.6-7.2) H Calcium Level 7.5 MG/DL (8.5-10.1) L Phosphorus Level 3.1 MG/DL (2.5-4.9) Magnesium Level 2.6 MG/DL (1.8-2.4) H Total Bilirubin 0.3 MG/DL (0.2-1.0) Aspartate Amino Transf (AST/SGOT) 20 U/L (15-37) Alanine Aminotransferase (ALT/SGPT) 7 U/L (12-78) L Alkaline Phosphatase 64 U/L (46-116) C-Reactive Protein, Quantitative 38.5 mg/dL (0.00-0.90) H Pro-B-Type Natriuretic Peptide 4317 pg/mL (0-125) H Total Protein 7.8 G/DL (6.4-8.2) Albumin 2.0 G/DL (3.4-5.0) L Globulin 5.8 g/dL Albumin/Globulin Ratio 0.3 (1.0-2.7) L Prothrombin Time 12.8 SEC (9.30-11.50) H Prothromb Time International Ratio 1.2 (0.9-1.1) H Activated Partial Thromboplast Time 69 SEC (23-33) H Arterial Blood pH 7.230 (7.350-7.450) Arterial Blood Partial Pressure CO2 33.9 mmHg (35.0-45.0) L Arterial Blood Partial Pressure O2 149.3 mmHg (75.0-100.0) H Arterial Blood HCO3 13.9 mmol/L (22.0-26.0) *L Arterial Blood Oxygen Saturation 98.4 % (95-100) Arterial Blood Base Excess -12.6 (-2-2) *L Pavan Test N/a Microbiology Date/Time Source Procedure Growth Status 06/30/20 15:50 Nasal Nares - Final Complete 06/30/20 15:50 Nasal Nares - Final Complete 06/30/20 14:36 Nasopharynx SARS-CoV-2 RdRp Gene Assay - Final Complete Russ Egan MD Jul 01, 2020 12:39
[2020-07-01] MEDS ORDERED: dexAMETHasone 10mg/ml Inj IV SCH (13:00)
--- NOTE | 2020-07-01 14:18 | Emergency Room Report ---
Physical Exam Vital Signs Date Time Temp Pulse Resp B/P (MAP) Pulse Ox O2 Delivery O2 Flow Rate FiO2 06/30/20 13:59 98.1 122 22 123/104 (110) 98 4.0 06/30/20 15:32 Non-Rebreather 06/30/20 18:05 100 Medical Decision Making Diagnostic Impression: Primary Impression: COVID-19 Additional Impressions: AMS (altered mental status) Acute renal failure Hyperglycemia Respiratory failure UTI (urinary tract infection) Pneumonia ER Course Called to patient bedside for CODE BLUE. Prior to my arrival the patient had been defibrillated twice for reported wide-complex ventricular tachycardia. Patient was intubated by me under direct visualization with 7.5 endotracheal tube secured at 24 cm at the lip. Multiple rounds of CPR. Patient received epinephrine, bicarb, calcium, and was given amiodarone. Return of spontaneous circulation after a third defibrillation at 200 J. Patient went into a narrow complex tachycardia afterward on monitor. Strong palpable pulses. Oxygenating well with equal chest rise and misting in the tube. Transfer to ICU. Chest x- ray pending. Last Vital Signs Date Time Temp Pulse Resp B/P (MAP) Pulse Ox O2 Delivery O2 Flow Rate FiO2 07/01/20 11:07 87 44 95 100 07/01/20 10:41 Bi-pap 07/01/20 08:55 98.3 102/62 15.0 Disposition: ADMITTED INPATIENT Condition: Critical Referrals: Eugenio Lopez DO (PCP) Additional Instructions: Please note that this report is being documented using DRAGON technology. This can lead to erroneous entry secondary to incorrect interpretation by the dictating instrument. Procedures Cardioversion Cardioversion: Consent: Emergent Indication: V-TACH Type: Desynchonis - 200J Attempts: One Patient Tolerated: Well Complications: None Intubation Intubation : Consent: Emergent Intubation Method: orotracheal Tube Size (cm): 7.5 Breath Sounds after Intubation: equal Intubation Complications: no complications Post Intubation Xray: Yes Progress/Xray Impression: pending Attempts: One Patient Tolerated: Well Complications: None Roger Mayorga MD Jul 01, 2020 14:18
[2020-07-01] MEDS ORDERED: cefTRIAXone 1 GM in D5W 55 ML IVPB SCH (15:00)
[2020-07-01] MEDS ORDERED: Calcium Chloride 10% 10ml carpuject IVP ONE (15:00)
[2020-07-01] MEDS ORDERED: Amiodarone 150mg/3ml Amp ONE (15:00)
[2020-07-01] MEDS ORDERED: Sodium Bicarbonate 50ml Carp ONE (15:00)
[2020-07-01] MEDS ORDERED: Atropine Inj 1mg/10ml Syr ONE (15:00)
--- NOTE | 2020-07-01 15:00 | Consultation ---
DATE OF CONSULTATION: 07/01/2020 CARDIOLOGY CONSULTATION CONSULTING PHYSICIAN: Russ Egan MD. REASON FOR CONSULTATION: Respiratory failure, hypotension and elevated D-dimer. HISTORY OF PRESENT ILLNESS: The patient is a 59-year-old female with history of hypertension, who was brought in by paramedics from [facility] for altered mental status. The patient was found to have acute renal failure as well as hypoxia, currently on BiPAP. The patient also has COVID-19 as well as urinary tract infection. Cardiology consultation was obtained for further evaluation and management. REVIEW OF SYSTEMS: Negative other than what was mentioned in the history of present illness. PAST MEDICAL HISTORY: As mentioned above. FAMILY HISTORY: Noncontributory. SOCIAL HISTORY: group home resident. PHYSICAL EXAMINATION: VITAL SIGNS: Blood pressure was 102/62, pulse as high as 145 and is currently 75, respirations 18, and temperature 98.3. HEAD AND NECK: Shows no JVD. LUNGS: Coarse rhonchi bilaterally. CARDIOVASCULAR: Shows regular S1 and S2. ABDOMEN: Soft. EXTREMITIES: No pitting edema. LABORATORY AND DIAGNOSTIC DATA: Labs show white count of 11.1, hemoglobin is 11.5, hematocrit 34.6, and platelet count of 121,000. Sodium 159, potassium 5.3, BUN of 126, creatinine of 4.5, glucose of 398. Troponin 0.014. Hemoglobin A1c is 9.8. Lactic acid is 5.6. Initial glucose was 867. Initial sodium was also 164. INR is 1.2. D-dimer is 3.3. ASSESSMENT AND PLAN: 1. Hypotension. This is likely due to the patient's severe dehydration. We will give the patient of half saline bolus, and the patient will be getting half-normal saline. Further evaluation by Dr. Coe. The patient may need pressors. 2. Respiratory failure, on the BiPAP. 3. COVID pneumonia. 4. Hypernatremia with sodium 159. 5. Uncontrolled diabetes with blood glucose of 867 and hemoglobin A1c of 9.8. The patient is on insulin. 6. Positive D-dimer and severe shortness of breath. The patient's heparin drip per pharmacy for COVID. 7. Hypercoagulable status, possible pulmonary embolism. Thank you very much for allowing me to participate in the care of this patient. Please do not hesitate to contact me for any questions regarding my evaluation. Russ Egan M.D. DR: BISMARK JOB#: [id number] CC:
--- NOTE | 2020-07-01 15:15 | History and Physical Report ---
DATE OF ADMISSION: 06/30/[address] Eugenio Lopez. This is Dr. Eugenio Lopez's patient. I am covering for him. HISTORY OF PRESENT ILLNESS: The patient is admitted for respiratory failure, has COVID-positive pneumonia as well as elevated sugar, non-DKA, altered mental status. 911 was called and was sent because of ALOC. The patient was initially on BiPAP, was hypotensive. Sugar was over 800, no DKA, elevated D-dimer, and acute renal failure with hyperkalemia, hypernatremia, and dehydration. Admitted for those reasons. The patient is lethargic, on BiPAP. Cannot get any history from the patient. PAST MEDICAL HISTORY: Significant for NIDDM, mood disorder, constipation, GERD. PAST SURGERIES: None known. ALLERGIES: No known allergies. MEDICATIONS: Cogentin, Dulcolax, Depakote, glipizide, insulin, lactobacillus, metformin, Protonix, and Senokot. FAMILY HISTORY: Noncontributory. SOCIAL HISTORY: Unable to obtain. REVIEW OF SYSTEMS: Unable to obtain. The patient is nonverbal. Also put on BiPAP. PHYSICAL EXAMINATION: VITAL SIGNS: Temperature 98.3, pulse is 112, blood pressure is 102/63. HEENT: PERRLA. NECK: Supple. CHEST: Bibasilar rhonchi CARDIOVASCULAR: Regular rate and rhythm. No murmurs or extra sounds. GASTROINTESTINAL: Soft. Positive bowel sounds. No organomegaly. Nontender. Abdomen is soft. EXTREMITIES: No edema. NEUROLOGIC: Does not follow neurological exam, has generalized weakness. Reflexes are equal on both sides. LABORATORY DATA: WBC of 14, hemoglobin of 13.5, platelets 172. Sodium 159, potassium 5.3, BUN of 126, creatinine of 4.5. Troponin 0.014. ASSESSMENT AND PLAN: COVID-positive pneumonia, respiratory failure, on BiPAP, hyperosmolar hyperglycemia, nonketotic, acute renal failure, dehydration, hypernatremia due to dehydration. I have basically consulted Dr. Galvan, Dr. Mauri Alvarado, Dr. Giuseppe George, Dr. Coe, Dr. Chance Zhang, Dr. Green, and Dr. Egan to help with the above-mentioned abnormal imaging, abnormal symptoms, as well as abnormal lab findings. Management of diabetes per Dr. Galvan. Antibiotics per Dr. Giuseppe George. We will monitor the patient very closely. Vick Love M.D. DR: YANETH JOB#: [id number] CC:
--- NOTE | 2020-07-01 15:32 | Consultation ---
DATE OF CONSULTATION: 07/01/2020 PULMONARY CONSULTATION CONSULTING PHYSICIAN: Mauri Alvarado MD. HISTORY OF PRESENT ILLNESS: This is a 59-year-old female sent from nursing facility due to altered mental status. The patient was unable to provide any further history. The patient was admitted to the hospital. She was also found to have COVID-[address] was negative. Her x-ray chest showed bilateral pulmonary infiltrates. The patient received broad-spectrum antibiotics as well as Decadron. The patient was placed on BiPAP. This morning, the patient seemed to be lethargic and a followup ABG has been obtained. The patient was also found to have significant abnormalities of electrolytes and creatinine of 4.5 was documented. ABG showed pH 7.23, pCO2 of 33, and pO2 149. This is on a BiPAP. CURRENT MEDICATIONS: Include Rocephin, Decadron, heparin drip, insulin, cefepime, IV fluids. REVIEW OF SYSTEMS: Not reliable. PHYSICAL EXAMINATION: GENERAL: Reveals a 59-year-old female, currently on BiPAP. VITAL SIGNS: Blood pressure is 102/68, heart rate 78, respirations varying from 24 to 44. She is afebrile. HEENT: Unremarkable. LUNGS: Decreased breath sounds bilaterally with normal heart sounds. ABDOMEN: Soft. LABORATORY TESTING: As discussed above. ABG 7.23, pCO2 34, pO2 149. Chemistry is notable for sodium 159, creatinine of 4.5, potassium 5.3, hemoglobin A1c 9.8. Lactic acid 5.6, now 3.9. CRP . X-ray chest was obtained, which shows patchy infiltrates. IMPRESSION: 1. COVID-19 pneumonia. 2. Dehydration. 3. Renal failure. 4. skilled nursing resident. 5. Altered mental status. 6. Acidemia. DISCUSSION: Admit to step-down. The patient is critically ill. She may require to be intubated if she does not turn the corner on BiPAP. Agree with broad-spectrum antibiotics, Decadron, heparin drip, hypotonic fluids. DVT prophylaxis. We will follow. Mauri Alvarado M.D. DR: BILL JOB#: [id number] CC:
--- NOTE | 2020-07-01 15:39 | Emergency Room Report ---
Physical Exam I was called for a Code blue in the ICU. She had become asystolic. Prior to my arrival, 1 amp of epinephrine had been given. She had pulses when I arrived. Last 24 Hour Vital Signs Date Time Temp Pulse Resp B/P (MAP) Pulse Ox O2 Delivery O2 Flow Rate FiO2 07/01/20 14:33 103 18 97 Mechanical Ventilator 55.0 100 07/01/20 14:25 103 18 100 07/01/20 11:07 87 44 95 100 07/01/20 10:41 Bi-pap 07/01/20 09:51 74 24 98 Bi-Pap 100 07/01/20 08:55 98.3 112 36 102/62 100 Bi-pap 15.0 100 07/01/20 08:05 81 44 96 100 07/01/20 07:29 98.3 145 44 101/64 88 Bi-pap 15.0 100 07/01/20 07:07 98.3 132 48 101/64 96 Bi-pap 15.0 100 07/01/20 06:00 98.3 132 46 97/62 95 Bi-pap 15.0 100 07/01/20 05:00 98.3 132 46 99/64 99 Bi-pap 15.0 100 07/01/20 04:00 98.3 130 46 98/72 99 Bi-pap 15.0 100 07/01/20 03:00 98.3 128 45 101/61 99 Bi-pap 15.0 100 07/01/20 02:43 118 47 99 100 07/01/20 02:00 98.3 128 38 94/63 98 Bi-pap 15.0 100 07/01/20 01:00 98.3 124 38 96/67 98 Bi-pap 15.0 100 07/01/20 00:00 98.4 121 41 98/62 97 Bi-pap 15.0 100 06/30/20 23:00 98.4 123 46 101/68 96 Bi-pap 15.0 100 06/30/20 23:00 122 46 94 100 06/30/20 22:00 98.4 119 32 110/72 100 Bi-pap 15.0 100 06/30/20 20:30 98.4 115 34 108/78 100 Bi-pap 15.0 100 06/30/20 19:30 98.4 119 34 153/98 100 Bi-pap 15.0 100 06/30/20 19:29 92 57 95 100 06/30/20 19:08 124 57 97 Bi-Pap 100 115 50 95 06/30/20 18:05 92 24 96 100 06/30/20 17:30 98.4 122 40 83/61 90 Non-Rebreather 15.0 06/30/20 15:40 98.2 112 33 109/74 98 Non-Rebreather 15.0 06/30/20 15:32 98.1 22 123/104 98 Non-Rebreather 15.0 06/30/20 15:32 122 22 Non-Rebreather 15.0 Sp02 EP Interpretation: reviewed, abnormal - interpreted as low by me General Appearance: other - Unresponsive, CPR being performed Head: normocephalic, atraumatic Eyes: bilateral eye other - Pupils unresponsive ENT: other - Endotracheal tube Respiratory: other - Good chest rise clear breath sounds Cardiovascular #1: bradycardia Cardiovascular #2: 2+ femoral (R) - Intermittently Gastrointestinal: non-distended Genitourinary: other - Garcia Musculoskeletal: other - No deformity Neurologic: other - Unresponsive Psychiatric: other - Unresponsive Skin: no rash Central Line Central Line : Consent: Emergent Central Line Lumen: triple Maximal Sterile Barrier Tech: yes cap, yes mask, yes sterile gown, yes sterile gloves, yes large sterile sheet, yes hand hygiene, yes chlorhexidine prep Central Line Postion: femoral (R) Anesthesia: none US Guided Line?: No Complications: none Central Line Post Position: sutured, good blood return Attempts: One Patient Tolerated: Well Complications: None CPR/Code Blue CPR/Code Blue Narrative Patient recently code in SDU. Initial rest was a v. fib arrest. Apparently she had been shocked and amiodarone was administered. Also bicarbonate and calcium chloride were given. Patient has a history of end-stage renal disease. Morning potassium was 5.3. This code was started at 1419. Initial rhythm recorded asystole. 1 amp of epinephrine was administered. Now patient apparently became bradycardic and asystolic. Pulses were restored transiently. The patient became asystolic again at 1428. CPR was performed under my supervision. Patient lost pulses initially through bradycardia and then asystole. Epinephrine was repeated. Pulses were restored. Right central line was started by me. Patient bradycardic and atropine administered. Blood gas returns with pH is 6.89. 2 amps of bicarbonate administered Pulse was restored. Patient again became bradycardic and lost pulses. Epinephrine repeated and pulses restored. A total of 5 amps of epinephrine were given. In addition because of bradycardia and hypotension dopamine was started. This was titrated up by me. Finally dopamine was given wide open. The patient had bradycardia with weak pulses. Finally these pulses were lost. The final rhythm was PEA. Pronounced at 15:01 Medical Decision Making Diagnostic Impression: Primary Impression: Cardiopulmonary arrest ER Course The patient had sustained a V. fib arrest. She was resuscitated by Dr. Mayorga. The patient had an asystolic arrest that was resuscitated initially with epinephrine. The patient rearrested. 5 amps of epinephrine and 1 amp of atropine were administered. A central line was established. Dopamine was started. Patient demonstrated cardiopulmonary unresponsiveness. Code terminated and patient pronounced at 1501. Final rhythm was PEA with a rate of 40. Rhythm Strip Diag. Results EP Interpretation: yes Rhythm: no PVC's, no ectopy, other - Bradycardia Status: worsened Disposition: Condition: Referrals: Eugenio Lopez DO (PCP) Additional Instructions: Please note that this report is being documented using [employer] technology. This can lead to erroneous entry secondary to incorrect interpretation by the dictating instrument. Denzel Garcia MD Jul 01, 2020 15:39
--- NOTE | 2020-07-01 18:15 | Consultation ---
DATE OF CONSULTATION: 07/01/2020 INFECTIOUS DISEASE CONSULTATION CONSULTING PHYSICIAN: Giuseppe George MD PRIMARY ATTENDING PHYSICIAN: Vick Love MD REASON FOR CONSULTATION: COVID-19 disease, UTI. HISTORY OF PRESENT ILLNESS: This is a 59-year-old female admitted yesterday from nursing facility with altered mental status. She was found to have tachycardia with heart rate of up to 132, had leukocytosis of 14,000, has hypotension with blood pressure of 83/61, and was found to have acute renal failure and was hypoxemic. PAST MEDICAL HISTORY: Diabetes mellitus type 2, psychiatric issues, and CSF-draining device. ALLERGIES: No known drug allergies. MEDICATIONS: Getting Protonix, Colace, heparin, insulin aspart, insulin detemir, and sodium chloride. SOCIAL HISTORY: . retirement resident. No other history obtainable. The patient currently is confused, on restraints. PHYSICAL EXAMINATION: VITAL SIGNS: Temperature 98.3, no fever in the hospital, pulse 74, blood pressure 102/62. HEAD AND NECK: On BiPAP. HEART: Normal rate. LUNGS: Decreased sounds. FiO2 is 100%. ABDOMEN: Soft. EXTREMITIES: No edema. She has some muscle atrophy. NEUROLOGIC: Confused, on restraints. LABORATORY AND DIAGNOSTIC DATA: COVID test was positive. Influenza A and B were negative. WBC today is 11.1, hemoglobin 11.5, hematocrit 34.6, platelet is low. Sodium 159, potassium 5.3, chloride 128, bicarb 18, BUN 126, creatinine 4.5. Hemoglobin A1c 9.8. Glucose is 394. Calcium is 13.4. Lactic acid 3.9, coming down from 5.6 at the time of admission. Albumin is 2. Chest x-ray showed bilateral infiltrates, likely multifocal pneumonia. Head CT, no stroke, has right frontal approach intraventricular shunt catheter. Renal ultrasound, normal right kidney, empty bladder, and left kidney was not seen because of body habitus. IMPRESSION: 1. Sepsis with leukocytosis, tachycardia, hypotension, and tachypnea. 2. COVID-19 disease. 3. Pyuria, may have UTI. 4. Acute renal failure. 5. Hypoxemia. 6. Diabetes mellitus with hyperglycemia. 7. Hypercalcemia. 8. Hypernatremia. 9. Thrombocytopenia. RECOMMENDATIONS: Continue antibiotic treatment with ceftriaxone. We will start the patient on dexamethasone. The patient is not eligible for receiving of remdesivir because of renal failure. At the end of my exam, I thank Dr. Eugenio Lopez and Dr. Love for involving me in the care of this patient. Giuseppe George M.D. DR: JESSICA JOB#: [id number] CC: CLAUDE
[2020-07-01] MEDS ORDERED: Pantoprazole Inj IVP SCH (21:00)
--- NOTE | 2020-07-02 12:29 | Discharge Summary ---
Discharge Summary Discharge Summary _ SUMMARY DATE OF ADMISSION: 06/30/2020 DATE OF EXPIRATION : 07/01/2020 REASON FOR ADMISSION: 59 years old female, resident of longterm facility, with past medical history of diabetes mellitus, schizophrenia, history of TIA, seizure disorder, was sent for evaluation due to altered mental status. Upon evaluation patient was tachycardic with heart rate 122 and hypoxic, requiring supplemental oxygen 4 L via nasal cannula. Rapid COVID-19 was positive. Influenza screen test was negative. Chest x-ray revealed bilateral infiltrates likely , representing multifocal pneumonia. CT of the head showed no intracranial hemorrhage or acute infarct. Right frontal approach intraventricular shunt catheter with tip at the septum pellucidum. No midline shift. Laboratory work-up revealed leukocytosis with WBC 14, stable hemoglobin and hematocrit. Sodium 154, potassium 5.9. BUN 121, creatinine 4.2. Glucose 867, anion gap 15. CRP 26.7, LDH 431, ferritin 513, D-dimer 3.03. Lactic acid 5.6 Urinalysis revealed +3 protein, +2 glucose, pyuria , many bacteria. Patient pancultured , started on empiric antibiotic, received IV Decadron and breathing treatment. Patient became increasingly tachypneic while in the emergency department and required placement on the BiPAP. Patient received insulin , IV fluids and admitted for further management. CONSULTANTS: document reviewer Dr. Dee pulmonary Dr. Alvarado production finisher Dr. Galvan ID specialist Dr. Jeevan George [facility] COURSE: Patient admitted to TATE isolation room. Patient was continued on BiPAP with close monitoring of respiratory status . Patient started on the IV steroids. Pulmonary toilet provided. Patient started on empiric antibiotic for UTI. Remdesivir was not indicated given renal failure. Renal parameters and electrolytes were closely monitored , nephrotoxic's were avoided. Blood sugar was managed as per production finisher recommendation with long-acting Levemir and sliding scale of insulin every 4 hours. Hypoglycemia protocol was in place. Hemoglobin A1c 9.8. The next day patient was hypotensive. ABG showed hypoxia and acidosis . Patient transferred to ICU. Garcia catheter was inserted . Hydration continued . Albumin boluses provided . Renal ultrasound revealed nonvisualized left kidney. Unremarkable right kidney. No hydronephrosis. Empty bladder with Garcia catheter. Creatinine worsened Hyperkalemia improved , though potassium remained elevated . Lactic acid trended down to 3.9. Inflammatory markers followed up: CRP trended up to 38.5 . Patient started on full anticoagulation due to COVID infection and possible PE. CODE BLUE was called due to wide-complex ventricular tachycardia. ACLS protocol initiated. Patient was defibrillated. Patient subsequently intubated by emergency room physician . multiply rounds of CPR continued. Patient received medication as per ACLS algorithm with a return of spontaneous circulation after third defibrillation at 200 Joules. Another CODE BLUE was called due to asystolic arrest. ACLS protocol initiated. Unfortunately all resuscitative efforts appeared to be futile. Patient was pronounced at 15:01 on 07/01 . Cause of : cardiopulmonary arrest FINAL DIAGNOSES: Status post cardiopulmonary arrest Sepsis COVID-19 pneumonia Acute hypoxemic respiratory failure ( requiring BiPAP and then intubation) Hypotension Diabetes mellitus [id number] with hyperglycemia Positive D-dimer Hypercoagulable state Possible PE Acute renal failure, most likely an underlying chronic kidney disease Toxic metabolic encephalopathy UTI Lactic acidosis Electrolyte abnormality hypernatremia , hyperkalemia Dehydration I have been assigned to dictate discharge summary for this account. I was not involved in the patient's management. Celeste Maya NP Jul 02, 2020 12:29
== END 2020-07-01 15:01 | disposition expired | DRG 137 ==
LOC: EDBD 14:13 → EMR 16:02 → 2W 16:40 → EDBEDREQ 18:28 → EDBEDREQSVC 19:19 → EDBEDREQ 07-01 05:09 → 2W 07-01 09:30 → ICU 07-01 14:24
PROC: 5A09357 Assistance with Respiratory Ventilation, Less than 24 Consecutive Hours, Continuous Positive Airway Pressure (ICD-10-PCS; 2020-06-30)
PROC: 0BH17EZ Insertion of Endotracheal Airway into Trachea, Via Natural or Artificial Opening (ICD-10-PCS; principal; 2020-07-01)
PROC: 5A12012 Performance of Cardiac Output, Single, Manual (ICD-10-PCS; 2020-07-01)
DX: U07.1 COVID-19 (principal); N39.0 Urinary tract infection, site not specified; N17.9 Acute kidney failure, unspecified; J12.89 Other viral pneumonia; E87.2 Acidosis; E11.65 Type 2 diabetes mellitus with hyperglycemia; I49.01 Ventricular fibrillation; A41.89 Other specified sepsis; G92 Toxic encephalopathy; Z79.4 Long term (current) use of insulin; E87.5 Hyperkalemia; E87.0 Hyperosmolality and hypernatremia; E86.0 Dehydration; Z86.73 Personal history of transient ischemic attack (TIA), and cerebral infarction without residual deficits; I26.99 Other pulmonary embolism without acute cor pulmonale; E83.52 Hypercalcemia
CPT/HCPCS: 36415; 70450; 71045; 76770; 80053; 81003; 82728; 82803; 82962; 83036; 83605; 83615; 83735; 83880; 84100; 84300; 84484; 84550; 85007; 85025; 85379; 85610; 85730; 86140; 86710; 87040; 87086; 93005; 94002; 94640; 96361; 96365; 96367; 96375; 99291; J0171; J2250; J7620; U0002